=== PATIENT | female | born 1960 | race Caucasian/White ===

== ENCOUNTER → 2021-02-20 | Outpatient (CLI) | payer OTHER ==
[~2021-02-20] MED LIST: AMITRIPTYLINE H25 M4 PO; CYMBALTA20 MG; DIAZEPAM 5 MG5 MG PO; ESTRATEST H.S.1 EACH; ESTROVEN JOINT1 EACH PO; FLONASE 0.05%50 MCG NASAL; IBUPROFEN 800800 M1 PO; NAPROSYN500 MG; PERCOCET 5-3251 EACH PO; PRILOSEC40 MG
== END ==
LOC: M.RAD 10:59
PROVIDERS: ATTEND Internal Medicine
DX: Z12.31 Encounter for screening mammogram for malignant neoplasm of breast (principal)